=== PATIENT | male | born 1955 | race Caucasian/White ===

== ENCOUNTER 2018-08-14 07:58 | Day surgery (SDC) | payer OTHER ==
[2018-08-14] VITALS (15 sets, daily range): BP systolic 132–179; BP diastolic 72–83; PULSE 76–94; RESP 12–25; Ht 172.7 cm; Wt 77.7 kg
[~2018-08-14] VITALS: Ht 172.7 cm; Wt 77.7 kg
[~2018-08-14 07:58] MED LIST: LABETALOL HCL 20MG INJ ONE; LIDOCAINE 2% (SDV) 5 ML INJ ONE
[2018-08-14] MEDS ORDERED: SOD CHLORIDE 0.9% 1,000 ML IV SCH (08:00)
[2018-08-14] MEDS ORDERED: CEFAZOLIN 2 GM/50 ML (PMX) 50 ML IVPB ONE (08:00)
[2018-08-14] MEDS ORDERED: METF100010 PO (08:31)
[2018-08-14] MEDS ORDERED: BENA20TA4 PO (08:32)
[2018-08-14] MEDS ORDERED: AMLO-147 PO (08:32)
[2018-08-14] MEDS ORDERED: ATOR10TA65 PO (08:34)
--- NOTE | 2018-08-14 09:10 | NUR ---
I called Lisy from anesthesia and made her aware that labs were done on 07/22/18. she said that was ok. credit charge authorizer Ines aware also
[2018-08-14] MEDS ORDERED: BUPIVACAINE 0.5%/EPI (SDV) 30 ML INJ ONE (10:29)
[2018-08-14] MEDS ORDERED: LIDOCAINE 1% (MPF) 30 ML INJ ONE (10:29)
--- NOTE | 2018-08-14 10:39 | PREAC ---
Date/Time of Note Date/Time of Note DATE: 08/14/18 TIME: 10:38 Anesthesia Eval and Record Evaluation Time Pre-Procedure Interview DATE: 08/14/18 TIME: 10:38 Age 63 Sex male NPO: 8 hrs Preoperative diagnosis umblical hernia Planned procedure repair umblical hernia with mesh Past Medical History Past Medical History: Includes Cardio: HTN Endo: Diabetes Surgery & Anesthesia Issues No known issue Meds Anticoagulation: No Beta Geovanny within 24 hr: No Reason Beta Geovanny not given: Pt. not on B-Geovanny Reported Medications Atorvastatin Calcium (Atorvastatin Calcium) 10 Mg Tablet, 10 MG PO QHS, #30 TAB 08/14/18 Benazepril Hcl* (Benazepril Hcl*) 20 Mg Tablet, 20 MG PO DAILY, #30 TAB 08/14/18 Amlodipine Besylate* (Amlodipine Besylate*) 10 Mg Tablet, 10 MG PO DAILY, #30 TAB 08/14/18 Metformin Hcl* (Metformin Hcl*) 1,000 Mg Tablet, 1000 MG PO WITH BREAKFAST DINNE, #60 TAB 08/14/18 Current Medications Sodium Chloride 1,000 ml @ 75 mls/hr [id number] IV ; Start 08/14/18 at 08:00; Stop 08/14/18 at 21:19 Meds reviewed: Yes Allergies Coded Allergies: No Known Drug Allergies (Unverified Allergy, Unknown, 08/14/18) Allergies Reviewed: Yes Labs/Studies Labs Reviewed: Reviewed by anesthesiologist test: N/A Studies: ECG, CXR Pre-procedure Exam Last vitals Vital Signs Date Temp Pulse Resp B/P (MAP) Pulse Ox O2 O2 Flow FiO2 Time Delivery Rate 08/14/18 98.9 84 16 179/83 93 Room Air 08:05 (115) Airway: Adequate mouth opening, Adequate thyromental dist Mallampati: Mallampati II Teeth: Normal Lung: Normal Heart: Normal ASA Physical Status ASA physical status: 2 Emergency: None Planned Anesthetic General/MAC: ETT Pre-operative Attestations Prior to commencing anesthesia and surgery, the patient was re-evaluated, there was verification of: *The patient's identity *The results of appropriate recent lab work and preoperative vital signs *The above evaluation not changing prior to induction *Anesthetic plan, risk benefits, alternative and complications discussed with patient/family; questions answered; patient/family understands, accepts and wishes to proceed. MORIS GALLEGOS. CYBERATHLETE Aug 14, 2018 10:39
[2018-08-14] MEDS ORDERED: FENTAnyl 50 MCG/ML VIAL ONE ×2 (10:41→11:37)
[2018-08-14] MEDS ORDERED: SUCCINYLCHOLINE CHLORIDE 100 MG/5 ML SYG IV ONE (10:41)
[2018-08-14] MEDS ORDERED: DEXAMETHASONE 4 MG/ML 5 ML INJ ONE (10:41)
[2018-08-14] MEDS ORDERED: MIDAZOLAM 1 MG/ML 2 ML INJ ONE (10:41)
[2018-08-14] MEDS ORDERED: ONDANSETRON 4 MG INJ ONE (10:41)
[2018-08-14] MEDS ORDERED: ROCURONIUM 50 MG INJ ONE (10:41)
[2018-08-14] MEDS ORDERED: PROPOFOL 20 ML ONE (10:41)
--- NOTE | 2018-08-14 10:45 | HPN ---
Date/Time of Note Date/Time of Note DATE: 08/14/18 TIME: 10:45 Interval H&P Admission Note Pt. seen H&P reviewed: No system changes LEAH JUNG Aug 14, 2018 10:45
[2018-08-14] MEDS ORDERED: CEFAZOLIN 1 GM INJ ONE (10:47)
--- NOTE | 2018-08-14 10:48 | OPR ---
Date/Time of Note Date/Time of Note DATE: 08/14/18 TIME: 10:47 Operative Report Procedure Date: Aug 14, 2018 Preoperative Diagnosis ventral hernia Postoperative Diagnosis Incarcerated ventral hernia Operation/Procedure Performed Ventral hernia repair with mesh, incarcerated Surgeon Leah Pascual MD [facility] Soap Drier Tender Jalen Huitron MD Anesthesia Type: general Estimated Blood Loss: minimal Transfusion none Specimen hernia sac Grafts/Implants none Complications none Pt Condition Post Procedure: stable Disposition: PACU Indications Patient presented with an umbilical hernia that has been growing in size and causing pain and discomfort. For symptomatic relief he will undergo laparoscopic repair. Procedure Description Patient was laid supine on the OR table and time out was called. Abd prepped and draped in sterile manner. Abx given. A 5 mm incision was made at Fabian's point at LUQ and Veress needle entered until three clicks heart with reassuring saline test. Abd insufflated to 15 mm Hg. Abdomen entered with Optiview trocar under visualization. Area of entry inspected and no injury was noted. A second port was placed at LLQ (12 mm) after care was taken to avoid the inferior epigastric vessels. The ventral hernia was noted and multiple adhesions were noted as well. These adhesions were lysed laparoscopically. The patient had some omental fat incarcerated into the hernia. External pressure was applied and then the omental fat was grasped bluntly and reduced back into the abdomen. The adjacent fat and hernia sac was then dissected free with the use of the Ligasure and brought out of the abdomen. An Echo 2 Ventralight mesh measuring 15 cm in diameter was inserted through the 12 mm port and then tacked up against the fascia using two layers of Securestrap tacks one centimeter apart. The Echo unfolding component was grasped and removed through the 12 mm port. The abdomen was inspected and noted to be hemostatic. The Vinod Payton fascial closure device was then used to close the fascia using interrupted #1 Vicryl suture. All instrument, sponge, and needle counts were correct at the end of the procedure x 2. The sites were then closed using 4-0 Monocryl subcuticular sutures. Wet dry dressings were applied and the wound was covered with Dermabond dressing. Patient was then discontinued from anesthesia and disposition to the postanesthesia care unit in stable condition. LEAH PASCUAL Aug 14, 2018 10:48
[2018-08-14] MEDS ORDERED: METOCLOPRAMIDE 10 MG INJ ONE (11:00)
[2018-08-14] MEDS ORDERED: HYDROCODONE/APAP (5/325) TAB PO PRN ×2 (11:00)
[2018-08-14] MEDS ORDERED: SUGAMMADEX SODIUM 200 MG/2 ML VIAL IV ONE (11:01)
--- NOTE | 2018-08-14 12:01 | NUR ---
RECEIVED RESPONSIVE IN NO DISTRESS WITH ABDOMINAL INCISIONS X 4 SITES CLEAR WITH DERMABOND INTACT,
--- NOTE | 2018-08-14 12:05 | PAC ---
Date/Time of Note Date/Time of Note DATE: 08/14/18 TIME: 12:04 Post-Anesthesia Notes Post-Anesthesia Note Last documented vital signs Vital Signs Date Temp Pulse Resp B/P (MAP) Pulse Ox O2 O2 Flow FiO2 Time Delivery Rate 08/14/18 98.9 84 16 179/83 93 Room Air 08:05 (115) Activity: WNL Respiratory function: WNL Cardiovascular function: WNL Mental status: Baseline Pain reasonably controlled: Yes Hydration appropriate: Yes Nausea/Vomiting absent: Yes MORIS GALLEGOS CRNA Aug 14, 2018 12:05
[2018-08-14] MEDS: HYDROmorphONE 1 MG/5 ML IV SYRINGE IV PRN ×5 (12:18→12:46)
--- NOTE | 2018-08-14 12:20 | NUR ---
AWAKE AND ALERT, C/O PAIN, MEDICATED WELL.
--- NOTE | 2018-08-14 12:24 | NUR ---
ENDORSED TO SOILA ELIZONDO. COMFORTABLE, BREATHING WITH EASE.V NO S/S BLEEDING.
[2018-08-14] MEDS ORDERED: FENTAnyl 50 MCG/ML VIAL IV PRN (12:30)
[2018-08-14] MEDS ORDERED: morphine (1 MG/ML) 10ML SYRINGE IV PRN (12:30)
[2018-08-14] MEDS ORDERED: ONDANSETRON 4 MG INJ IV PRN (12:30)
--- NOTE | 2018-08-14 12:55 | NUR ---
TRANSFER PT TRANSFER TO [facility] IN STABLE CONDITION REPORT GIVEN TO RN CARE PROVIDED PER [facility]AND[facility].
--- NOTE | 2018-08-14 14:39 | NUR ---
1258H: Received from PACU, s/p Lap Umbilical hernia repair, 4 small lap sites umbilical area and abdominal area clean dry intact, surgical incision sites clean dry intact, no signs of infection noted. VS stable, denies any pain. 1320H: walked to the bathroom w/o difficulty. Able to void freely approximately 400 cc, yellow color urine. 1335H: Noted BP to be 156/75, HR 84, noted initial BP pre op was 179/83. 1340H: discharge instructions given to daughter and patient post Umbilical hernia repair surgery. Activity and diet to follow at home. Side effects of pain medication and to go to nearest ED or call 911 should he experience chest pain, sob, palpitations. Also provided specific reading education / discharge instructions on Post Lap Umbilical hernia surgery. how to take care of lap wound sites, and signs of infection to watch out for. Verbalized understanding of health teachings. 1420H: Spoke w/ Dr. Pascual over the phone updated him re: patient's BP 156/75, and HR of 84 regular S1S2, as per dr. Pascual, ok to discharge patient. 1440H: discharge patient home per wheelchair, accompanied by daughter and spouse in stable condition.
== END 2018-08-14 14:40 | disposition home or self-care (01) ==
LOC: SDS 07:58
PROVIDERS: ATTEND Surgery Surgical Critical Care
DX: K43.6 Other and unspecified ventral hernia with obstruction, without gangrene (principal); E11.9 Type 2 diabetes mellitus without complications; I10 Essential (primary) hypertension; E78.00 Pure hypercholesterolemia, unspecified; Z79.84 Long term (current) use of oral hypoglycemic drugs
CPT/HCPCS: 49561; 49568; 82962; 88302; J0690; J1100; J1170; J2250; J2405; J2765; J3010